=== PATIENT | male | born 1945 | race Hispanic/Latino ===

== ENCOUNTER → 2018-03-10 | Outpatient (CLI) | payer OTHER ==
[~2018-03-10] MED LIST: DIATRIZOATE MEGL/DIATRIZOA SOD 30 ML BTL PO ONE; IOPAMIDOL 370 MG/ML 200 ML INFUS..BTL INJ ONE; LOSARTAN POTAS100 MG PO; SODIUM CHLORIDE 0.9% 250ML 500 ML ONE; SODIUM CHLORIDE 0.9% 50ML 50 ML ONE; TRIAMTERENE-HC1 EAC1 PO
[2018-03-10 08:35] LABS: CREATININE, SERUM 1.28 mg/dL (0.72-1.25)
--- NOTE | 2018-03-10 12:40 | Diagnostic Imaging Report ---
PROCEDURE: CT ABDOMEN AND PELVIS WITH CONTRAST TECHNIQUE: The abdomen and pelvis were scanned utilizing a multidetector helical scanner from the diaphragm to the lesser trochanter after the IV administration of 100 cc of Isovue 370 and the oral administration of Gastroview. Coronal and sagittal multiplanar reformations were obtained. COMPARISON: None. INDICATIONS: VENTRAL HERNIA FINDINGS: LOWER THORAX: Normal. HEPATOBILIARY: No focal hepatic lesions. No biliary ductal dilatation. SPLEEN: No splenomegaly. PANCREAS: No focal masses or ductal dilatation. ADRENALS: No adrenal nodules. KIDNEYS/URETERS: No hydronephrosis, stones, or solid mass lesions. PELVIC ORGANS/BLADDER: Unremarkable. PERITONEUM / RETROPERITONEUM: 3.4 cm fascial defect is noted in the anterior abdominal wall at the level of the umbilicus, series 300 image 71. Multiple loops of small bowel along with a single loop of descending colon are present within the hernia sac. No fluid is present in the hernia sac. No pneumoperitoneum or drainable fluid collection. Bilateral fat containing inguinal hernias, without bowel or fluid in the hernia sac. LYMPH NODES: No lymphadenopathy. VESSELS: Scattered aortoiliac atherosclerotic calcifications. GI TRACT: No air-fluid levels. No distention or wall thickening. Normal appendix. Moderate amount of retained feces limits intraluminal evaluation of the colon. BONES AND SOFT TISSUES: Unremarkable. IMPRESSION: 1. No acute abnormality of the abdomen and pelvis. 2. Umbilical hernia. Multiple loops of bowel are present in the hernia sac, without evidence of obstruction. Correlate clinically for reducibility. 3. Bilateral fat-containing inguinal hernias. Dictated by: Hood Medrano M.D. on 03/10/2018 at 12:41 Electronically approved by: Hood Medrano M.D. on 03/10/2018 at 12:41
== END ==
LOC: CT 07:56
PROVIDERS: ATTEND Surgery
DX: K43.9 Ventral hernia without obstruction or gangrene (principal)
CPT/HCPCS: 36415; 74177; 82565; 84520; J7050; Q9967

== ENCOUNTER 2018-03-28 06:12 | Inpatient (IN) | payer OTHER ==
[2018-03-27 15:43] LABS: BASOPHILS # (AUTO) 0.1 (0.0-0.1); BASOPHILS % 0.7 % (0.0-1.0); EOSINOPHILS # (AUTO) 0.1 (0.0-0.4); EOSINOPHILS % 1.6 % (0.0-6.0); HEMATOCRIT 37.2 % (38.2-49.6); HEMOGLOBIN 12.4 g/dL (14.0-18.0); LYMPHOCYTES # (AUTO) 1.5 (1.0-3.2); LYMPHOCYTES % 20.5 % (18.0-39.1); MEAN CORPUSCULAR HEMOGLOBIN 28.8 pg (28-32); MEAN CORPUSCULAR HGB CONC 33.3 g/dL (31-35); MEAN CORPUSCULAR VOLUME 86.5 fL (81-99); MONOCYTES # (AUTO) 0.7 (0.2-0.8); NEUTROPHILS # (AUTO) 5.1 (2.1-6.9); NEUTROPHILS % 67.8 % (38.7-80.0); PLATELET COUNT 193 x10e3/uL (140-360); RED CELL DISTRIBUTION WIDTH 13.8 % (11.7-14.4)
[2018-03-27 15:57] LABS: ANION GAP 13.8 mmol/L (8-16); CREATININE, SERUM 1.34 mg/dL (0.72-1.25); POTASSIUM 3.8 mmol/L (3.5-5.1)
--- NOTE | 2018-03-27 16:21 | Diagnostic Imaging Report ---
PROCEDURE: Frontal and lateral views of the chest. COMPARISON: Chest x-ray 09/05/2017. INDICATIONS: PRE-OPERATIVE CHEST X-RAY FOR HERNIA REPAIR FINDINGS: Lines/tubes: None. Lungs: The lungs are well inflated and clear. There is no evidence of pneumonia or pulmonary edema. Pleura: There is no pleural effusion or pneumothorax. Heart and mediastinum: The heart and the mediastinum are normal. Atherosclerotic ulcerations in the aorta. Bones: No acute bony abnormality. IMPRESSION: No acute cardiopulmonary disease. Dictated by: Howard Luis M.D. on 03/27/2018 at 16:23 Electronically approved by: Howard Luis M.D. on 03/27/2018 at 16:23
[~2018-03-28] VITALS: Ht 170.2 cm; Wt 95.3 kg
[~2018-03-28 06:12] MED LIST changes: +ALLOPURINOL100 MG PO; -DIATRIZOATE MEGL/DIATRIZOA SOD 30 ML BTL PO ONE; -IOPAMIDOL 370 MG/ML 200 ML INFUS..BTL INJ ONE; -SODIUM CHLORIDE 0.9% 250ML 500 ML ONE; -SODIUM CHLORIDE 0.9% 50ML 50 ML ONE
--- OUTSIDE RECORDS SUMMARY | 2018-03-28 06:13 | XMS REPORT ---
[facility] Address Unknown Phone Unavailable Care Team Providers Care Extender Name Role Phone EDD AMADOU Unavailable Unavailable Problems This patient has no known problems. Allergies, Adverse Reactions, Alerts This patient has no known allergies or adverse reactions. Medications This patient has no known medications. Results Test Description Test Time Test Comments Text Results Atomic Results Result Comments CHEST 2 VIEWS [place] [address] Patient Name: VERA PUGA MR #: [id number] : 1945 Age/Sex: 72/M Req #: [id number] Adm Physician: Ordered by: AMADOU PUGA MD Report #: [id number] Location: OR Room/Bed: Procedure: [id number] DX/CHEST 2 VIEWS Exam Date: 03/27/18 Exam Time : 1545 REPORT STATUS: Signed PROCEDURE: Frontal and lateral views of the chest. COMPARISON: Chest x-ray 09/05/2017. INDICATIONS: PRE- OPERATIVE CHEST X-RAY FOR HERNIA REPAIR FINDINGS: Lines/tubes: None. Lungs: The lungs are well inflated and clear. There is no evidence of pneumonia or pulmonary edema. Pleura: There is no pleural effusion or pneumothorax. Heart and mediastinum: The heart and the mediastinum are normal. Atherosclerotic ulcerations in the aorta. Bones: No acute bony abnormality. IMPRESSION: No acute cardiopulmonary disease. Dictated by: Abimael Luis M.D. on 03/27/2018 at 16:23 Electronically approved by: Abimael Luis M.D. on 03/27/2018 at 16:23 Dictated By: ABIMAEL LUIS MD 22 Transcribed By: MANNY on 03/27/181622 COPY TO: AMADOU PUGA MD CT ABDOMEN/PELVIS W [place] [address] Patient Name: VERA PUGA MR #: [id number] : 1945 Age/Sex: 72/M Req #: [id number] Adm Physician: Ordered by: AMADOU PUGA MD Report #: [id number] Location: CT Room/Bed: __ Procedure: [id number] CT/CT ABDOMEN/PELVIS W Exam Date: 03/10/18 Exam Time: 923 REPORT STATUS: Signed PROCEDURE: CT ABDOMEN AND PELVIS WITH CONTRAST TECHNIQUE: The abdomen and pelvis were scanned utilizing a multidetector helical scanner from the diaphragm to the lesser trochanter after the IV administration of 100 cc of Isovue 370 and the oral administration of Gastroview. Coronal and sagittal multiplanar reformations were obtained. COMPARISON: None. INDICATIONS: VENTRAL HERNIA FINDINGS: LOWER THORAX: Normal. HEPATOBILIARY: No focal hepatic lesions. No biliary ductal dilatation. SPLEEN: No splenomegaly. PANCREAS: No focal masses or ductal dilatation. ADRENALS: No adrenal nodules. KIDNEYS/URETERS: No hydronephrosis, stones, or solid mass lesions. PELVIC ORGANS/BLADDER: Unremarkable. PERITONEUM / RETROPERITONEUM: 3.4 cm fascial defect is noted in the anterior abdominal wall at the level of the umbilicus, series 300 image 71. Multiple loops of small bowel along with a single loop of descending colon are present within the hernia sac. No fluid is present in the hernia sac. No pneumoperitoneum or drainable fluid collection. Bilateral fat containing inguinal hernias, without bowel or fluid in the hernia sac. LYMPH NODES: No lymphadenopathy. VESSELS: Scattered aortoiliac atherosclerotic calcifications. GI TRACT: No air- fluid levels. No distention or wall thickening. Normal appendix. Moderate amount of retained feces limits intraluminal evaluation of the colon. BONES AND SOFT TISSUES: Unremarkable. IMPRESSION: 1. No acute abnormality of the abdomen and pelvis. 2. Umbilical hernia. Multiple loops of bowel are present in the hernia sac, without evidence of obstruction. Correlate clinically for reducibility. 3. Bilateral fat-containing inguinal hernias. Dictated by: John Zelaya M.D. on 03/10/2018 at 12:41 Electronically approved by: John Zelaya M.D. on 03/10/2018 at 12:41 Dictated By: JOHN ZELAYA MD 1241 Transcribed By: MANNY on 03/10/18 1241 COPY TO: AMADOU PUGA MD CHEST 2 VIEWS [place] [address] Patient Name: VERA PUGA MR #: [id number] : 1945 Age/Sex: 71/M Req #: [id number] Adm Physician: Ordered by: AMADOU PUGA MD Report #: [id number] Location: OR Room/Bed: Procedure: [id number] DX/CHEST 2 VIEWS Exam Date: 09/05/17 Exam Time : 1015 REPORT STATUS: Signed PROCEDURE: Frontal and lateral views of the chest. COMPARISON: None. INDICATIONS: PREOP UMBILICAL HERNIA FINDINGS: Lines/tubes: None. Lungs: There is mild flattening of the diaphragms. There is no evidence of soft tissue mass or infiltrate. A punctate calcified granuloma is in the right upper lobe. Pulmonary vascular markings and interstitium are normal. Pleura: There is no pleural effusion or pneumothorax. Heart and mediastinum: The heart and the mediastinum are normal. Calcified left hilar lymph nodes are present. Bones: Degenerative changes of the thoracic spine consistent with age. No focal osseous lesions. IMPRESSION: Mild pulmonary hyperinflation suggestive of small airways disease. Healed granulomatous inflammation. No acute cardiopulmonary process. Dictated by: Judith Valladares M.D. on at 11:14 Electronically approved by: Judith Valladares M.D. on at 11:14 Dictated By: JUDITH VALLADARES MD 1114 Transcribed By : MANNY on 09/05/17 1114 COPY TO: AMADOU PUGA MD
[2018-03-28] MEDS ORDERED: BUPIVACAINE 0.25%/EPI 30ML SDV INJ ONE (06:59)
[2018-03-28] MEDS ORDERED: BACITRACIN 50,000 UNIT VIAL ONE ×2 (08:21→10:26)
[2018-03-28] MEDS ORDERED: BUPIVACAINE LIPOSOME/PF 266 MG/20 ML IJ ONE (10:27)
[2018-03-28] MEDS ORDERED: NEOMYCIN/POLYMYX/BACITR OINT 0.9 GM PKT ONE ×2 (11:47→11:50)
[2018-03-28] MEDS ORDERED: MIDAZOLAM HCL 2 MG/2 ML VIAL ONE (11:50)
[2018-03-28] MEDS ORDERED: FENTANYL CITRATE/PF 100MCG/2 ML INJ ONE (11:50)
[2018-03-28] MEDS ORDERED: HYDROMORPHONE 0.2MG/ML-SOD CHL 30ML PCA SYRINGE IV PRN (12:00)
[2018-03-28] MEDS ORDERED: NALOXONE HCL INJ 0.4 MG/ML AMP IV PRN (12:00)
[2018-03-28] MEDS ORDERED: CEFAZOLIN SOD 1 GM/NS 50ML 50 ML IV SCH (12:00)
[2018-03-28] MEDS: PANTOPRAZOLE 40 MG 10ML VIAL IV SCH (12:00)
[2018-03-28] MEDS ORDERED: HYDROMORPHONE 0.2MG/ML-SOD CHL 30ML PCA SYRINGE IV ONE (12:22)
--- NOTE | 2018-03-28 13:06 | Operative Report ---
DATE OF PROCEDURE: March 28, 2018 PREOPERATIVE DIAGNOSIS: Recurrent ventral hernia. POSTOPERATIVE DIAGNOSIS: Recurrent ventral hernia. PROCEDURE PERFORMED: Repair of recurrent ventral hernia with lysis of adhesions, plication and repair of a diastasis of the recti, explantation of old mesh, placement of Proceed Ventral Patch medium size in the preperitoneal space and overlay placement of Ultrapro flat, lightweight, polypropylene mesh. [employer] SUBAGENT: GEOVANNA Verduzco ESTIMATED BLOOD LOSS: Minimal. DRAINS: Two 10-mm, flat, Jimi-Rowan drains COMPLICATIONS: None. INDICATIONS AND FINDINGS: Patient is a pleasant, 72-year-old male who had undergone repair of periumbilical ventral hernia in August 2017 with placement of a PVP patch in the abdominal cavity. He now returns with complaint of a recurrent bulge of the abdomen. The patient had a diastasis of the recti present at that time. INTRAOPERATIVE FINDINGS: The patient had a recurrence of the periumbilical hernia at the lower part and a hernia in the lower part of the diastasis of the recti. Because of this, it was decided to repair the diastasis by plication and place another mesh. The old mesh was explanted. Then a PVP mesh was placed in the preperitoneal space and then the fascia closed. On top of that, we placed as an overlay, after the fascia was closed, a polypropylene, lightweight, flat mesh. DESCRIPTION OF PROCEDURE: With the patient lying on the operative table in the supine position, after administration of general anesthesia, he was prepped and draped for repair of the recurrent ventral hernia. An incision was made superior and inferior and across the umbilicus all the way up to the subxiphoid region and slightly superior to the xiphoid region. The dissection was then begun above and below the hernia defect. It was about 4 cm. We dissected the fascia of the rectus and then superiorly and inferiorly until we came to the hernia, which consisted of herniation of bowel loops, small and part of the colon. We went ahead and developed the preperitoneal space superiorly and inferiorly to the hernia. Then we dissected the hernia sac and opened the sac to be able to see the intestine. At that point, we excised the old mesh with full visualization of the intestine, carefully preserving. At this point, we went ahead and then closed the peritoneum with a running 2-0 Vicryl. Then, since we had developed the preperitoneal space, we went ahead and placed a Proceed ventral patch PVP medium size in the preperitoneal space laying completely flat in the preperitoneal space. The PVP patch was secured peripherally both through the outer ring and inner ring with 2-0 Ethibond sutures, and then more medially the mesh was secured to the straps to the fascia. We cut the straps. Then at that point, we approximated without any tension the remainder of the fascia over the mesh without any kinking to provide an extra barrier to the exterior. Prior to the placement of the mesh, we had plicated the diastasis of the recti with a series of interrupted #0 Ethibond sutures. After we plicated the diastasis and we placed the PVP mesh, we then placed as an overlay polypropylene flat mesh 12 inches, which was cut in half. It was placed to cover the plication as well as the suture line extensively on either side. For this we used interrupted 2-0 Ethibond sutures as well as absorbable Ethicon nicholas. We copiously irrigated the operative field. Bleeding points were cauterized. We gave the patient an intraoperative field incisional block for which we used a total of 60 mL of a mixture of 20 mL of saline, 20 mL of Marcaine and 20 mL of Exparel. The sponge and instrument counts were correct. We then placed two 10-mm flat Jimi-Rowan drains to drain the wound. They were crisscrossed and brought out through a stab wound inferior to the incision. The subcutaneous tissues at this point were then closed using #0 Vicryl for the deeper tissues and #0 chromic catgut for the subcutaneous tissue and 2-0 chromic catgut for the superficial layer. The skin was closed with a combination of silk and nicholas. The drains were connected to self-suction. Sterile dressing was applied. The patient tolerated the procedure well and was taken to the recovery room in stable condition. Job#: [id number]
[2018-03-28 13:49] VITALS: BP 168/75
[2018-03-28] MEDS: DEXTROSE 5%/LACTATED RINGERS 1,000 ML IV SCH ×2 (14:18→23:55)
[2018-03-28] MEDS: CEFAZOLIN SOD 1 GM VIAL IV SCH ×3 (14:18→23:55)
[2018-03-28 14:24] VITALS: BP 168/75
[2018-03-28 16:00] VITALS: BP 149/73
[2018-03-28] MEDS ORDERED: PROPOFOL IV EMULSION 10 MG/ML 20 ML VIAL ONE (18:51)
[2018-03-28] MEDS ORDERED: SEVOFLURANE INHAL SOLN 250 ML PEN BTL ONE (18:51)
[2018-03-28] MEDS ORDERED: LIDOCAINE HCL 2% LOCAL INJ 5 ML SDV VIAL INJ ONE (18:51)
[2018-03-28] MEDS ORDERED: CEFAZOLIN SOD 1 GM VIAL ONE (18:51)
[2018-03-28] MEDS ORDERED: ROCURONIUM BROMIDE 10 MG/ML 5ML VIAL ONE (18:51)
[2018-03-28] MEDS ORDERED: ACETAMINOPHEN 1000 MG/100 ML IV ONE (18:51)
[2018-03-28] MEDS ORDERED: ONDANSETRON HCL INJ 2 MG/ML VIAL ONE (18:51)
[2018-03-28] MEDS ORDERED: DEXAMETHASONE SOD PHOS INJ 4 MG/ML VIAL ONE (18:51)
[2018-03-28] MEDS ORDERED: KETOROLAC TROMETHAMINE 30 MG/ML VIAL ONE (18:51)
[2018-03-28 19:45] VITALS: BP 149/71
[2018-03-28 20:05] VITALS: BP 149/71
[2018-03-29] VITALS: BP 127/61
[2018-03-29 04:00] VITALS: BP 118/58
[2018-03-29] MEDS: CEFAZOLIN SOD 1 GM VIAL IV SCH ×4 (05:55→23:55)
[2018-03-29 07:34] LABS: BASOPHILS % 0.2 % (0.0-1.0); EOSINOPHILS % 0.1 % (0.0-6.0); HEMOGLOBIN 9.5 g/dL (14.0-18.0); LYMPHOCYTES # (AUTO) 1.4 (1.0-3.2); LYMPHOCYTES % 14.6 % (18.0-39.1); MEAN CORPUSCULAR HEMOGLOBIN 29.8 pg (28-32); MEAN CORPUSCULAR HGB CONC 33.9 g/dL (31-35); MEAN CORPUSCULAR VOLUME 87.8 fL (81-99); MONOCYTES # (AUTO) 1.1 (0.2-0.8); MONOCYTES % 11.2 % (4.4-11.3); NEUTROPHILS % 73.5 % (38.7-80.0); PLATELET COUNT 155 x10e3/uL (140-360); RED BLOOD COUNT 3.19 x10e6/uL (4.3-5.7); RED CELL DISTRIBUTION WIDTH 13.9 % (11.7-14.4)
[2018-03-29 07:57] LABS: ANION GAP 10.4 mmol/L (8-16); CALCIUM 8.5 mg/dL (8.4-10.2); CREATININE, SERUM 1.36 mg/dL (0.72-1.25); POTASSIUM 3.4 mmol/L (3.5-5.1)
[2018-03-29 08:00] VITALS: BP 119/60
[2018-03-29] MEDS: DEXTROSE 5%/LACTATED RINGERS 1,000 ML IV SCH (08:41)
[2018-03-29] MEDS: LOSARTAN POTASSIUM 100 MG TAB PO SCH (08:41)
[2018-03-29] MEDS: D5.45%NS/KCL 20MEQ 1,000 ML IV SCH ×2 (10:48→20:20)
[2018-03-29 12:00] VITALS: BP 155/70
[2018-03-29] MEDS: PANTOPRAZOLE 40 MG 10ML VIAL IV SCH (12:20)
[2018-03-29 16:00] VITALS: BP 132/65
[2018-03-29 20:00] VITALS: BP 151/71
[2018-03-30] VITALS (8 sets, daily range): BP systolic 129–166; BP diastolic 61–91
[2018-03-30] MEDS: CEFAZOLIN SOD 1 GM VIAL IV SCH ×3 (06:10→17:49)
[2018-03-30 07:08] LABS: BASOPHILS % 0.4 % (0.0-1.0); EOSINOPHILS % 0.5 % (0.0-6.0); HEMATOCRIT 28.9 % (38.2-49.6); HEMOGLOBIN 9.7 g/dL (14.0-18.0); LYMPHOCYTES # (AUTO) 1.4 (1.0-3.2); LYMPHOCYTES % 16.8 % (18.0-39.1); MEAN CORPUSCULAR HEMOGLOBIN 29.7 pg (28-32); MEAN CORPUSCULAR HGB CONC 33.6 g/dL (31-35); MEAN CORPUSCULAR VOLUME 88.4 fL (81-99); MONOCYTES # (AUTO) 1.1 (0.2-0.8); MONOCYTES % 13.1 % (4.4-11.3); NEUTROPHILS # (AUTO) 5.9 (2.1-6.9); NEUTROPHILS % 68.6 % (38.7-80.0); PLATELET COUNT 133 x10e3/uL (140-360); RED BLOOD COUNT 3.27 x10e6/uL (4.3-5.7); RED CELL DISTRIBUTION WIDTH 13.9 % (11.7-14.4)
[2018-03-30 07:31] LABS: ANION GAP 9.8 mmol/L (8-16); CREATININE, SERUM 1.25 mg/dL (0.72-1.25); POTASSIUM 3.8 mmol/L (3.5-5.1)
[2018-03-30] MEDS ORDERED: HYDROMORPHONE 1MG/1ML INJ IV PRN (08:30)
[2018-03-30] MEDS ORDERED: HYDROMORPHONE 2MG/ML INJ IV PRN (08:45)
[2018-03-30] MEDS: HYDROCODONE/APAP 7.5MG-325MG 1 EA TAB PO PRN ×4 (08:51→22:50)
[2018-03-30] MEDS: LOSARTAN POTASSIUM 100 MG TAB PO SCH (08:51)
[2018-03-30] MEDS: D5.45%NS/KCL 20MEQ 1,000 ML IV SCH (08:51)
[2018-03-30] MEDS: PANTOPRAZOLE 40 MG 10ML VIAL IV SCH (12:31)
[2018-03-30] MEDS ORDERED: HC ACETATE/PRAMOXINE HCL 10 GM FOAM RC SCH (17:00)
[2018-03-30] MEDS: HYDROCORTISONE 2.5% PR CRM 1 OZ TUBE PR SCH (17:49)
[2018-03-31] VITALS: BP 168/84
[2018-03-31] MEDS: CEFAZOLIN SOD 1 GM VIAL IV SCH ×3 (00:06→12:27)
[2018-03-31 04:00] VITALS: BP 133/61
[2018-03-31] MEDS: HYDROCODONE/APAP 7.5MG-325MG 1 EA TAB PO PRN (06:10)
[2018-03-31] MEDS: D5.45%NS/KCL 20MEQ 1,000 ML IV SCH (06:43)
[2018-03-31 07:02] LABS: BASOPHILS % 0.3 % (0.0-1.0); EOSINOPHILS # (AUTO) 0.1 (0.0-0.4); EOSINOPHILS % 0.9 % (0.0-6.0); HEMATOCRIT 29.1 % (38.2-49.6); HEMOGLOBIN 9.8 g/dL (14.0-18.0); LYMPHOCYTES # (AUTO) 0.7 (1.0-3.2); LYMPHOCYTES % 10.4 % (18.0-39.1); MEAN CORPUSCULAR HEMOGLOBIN 30.1 pg (28-32); MEAN CORPUSCULAR HGB CONC 33.7 g/dL (31-35); MEAN CORPUSCULAR VOLUME 89.3 fL (81-99); MONOCYTES # (AUTO) 0.9 (0.2-0.8); NEUTROPHILS # (AUTO) 5.2 (2.1-6.9); NEUTROPHILS % 74.7 % (38.7-80.0); PLATELET COUNT 143 x10e3/uL (140-360); RED BLOOD COUNT 3.26 x10e6/uL (4.3-5.7); RED CELL DISTRIBUTION WIDTH 13.4 % (11.7-14.4)
[2018-03-31 07:26] LABS: ANION GAP 12.4 mmol/L (8-16); CALCIUM 8.9 mg/dL (8.4-10.2); CREATININE, SERUM 1.35 mg/dL (0.72-1.25); POTASSIUM 3.4 mmol/L (3.5-5.1)
[2018-03-31] MEDS: HYDROCORTISONE 2.5% PR CRM 1 OZ TUBE PR SCH (07:39)
[2018-03-31 07:45] VITALS: BP 133/61
[2018-03-31 08:15] VITALS: BP 169/84
[2018-03-31] MEDS: LOSARTAN POTASSIUM 100 MG TAB PO SCH (08:34)
[2018-03-31 12:00] VITALS: BP 134/64
[2018-03-31] MEDS: PANTOPRAZOLE 40 MG 10ML VIAL IV SCH (12:27)
--- NOTE | 2018-03-31 14:03 | Discharge Summary ---
DISCHARGE DIAGNOSES 1. Recurrent ventral hernia. 2. Diastasis of the recti with hernia within it. PROCEDURE PERFORMED DURING THIS HOSPITALIZATION: On 03/28/2018, he underwent repair of recurrent ventral hernia with lysis of adhesions, plication and repair of the diastasis of the recti, explantation of old mesh and placement of Proceed Ventral Patch medium size in the preperitoneal space and overlay placement of Ultrapro flat, lightweight, polypropylene mesh by Dr. Kb Ortez. HISTORY OF PRESENT ILLNESS AND HOSPITALIZATION COURSE: The patient is a pleasant, 72-year-old male who had undergone repair of periumbilical ventral hernia in August 2017, with placement of a PVP patch in the abdominal cavity. The patient now complains of pain recurrent of the abdomen. Physical examination revealed a recurrent ventral hernia located in the periumbilical area and within the lower aspect of the diastasis of the recti. The patient was admitted for surgery. The previously described procedure was performed on the previously described date. The postoperative course was unremarkable. He was discharged home afebrile. He was tolerating a regular diet well. He had passed gas. The drains were draining small amounts of serosanguineous fluid. He was discharged home on Tylenol No. 3, Phenergan and Keflex 500 mg p.o. q.6 h. for 3 days. The patient was instructed to do no heavy lifting and to come back to the office on Saturday for removal of the drains. He was given instructions. He had no work tolerance. AMADOU ORTEZ MD Job#: [id number]
[2018-04-01] MEDS ORDERED: PANTOPRAZOLE SOD 40 MG TABEC PO SCH (07:30)
== END 2018-03-31 13:25 | disposition home or self-care (01) | DRG 353 ==
LOC: OR 06:12 → MED/SURG 12:54
PROVIDERS: ADMIT Surgery; ATTEND Surgery
PROC: 0WQF0ZZ Repair Abdominal Wall, Open Approach (ICD-10-PCS; 2018-03-28)
PROC: 0WUF0JZ Supplement Abdominal Wall with Synthetic Substitute, Open Approach (ICD-10-PCS; principal; 2018-03-28 07:38)
DX: K43.2 Incisional hernia without obstruction or gangrene (principal); Q79.59 Other congenital malformations of abdominal wall; K57.90 Diverticulosis of intestine, part unspecified, without perforation or abscess without bleeding; I10 Essential (primary) hypertension
CPT/HCPCS: 36415; 71046; 80048; 85025; 88302; 88304; 93005; C1781; J0690; J1100; J1885; J2001; J2250; J2405; J7120